=== PATIENT | female | born 1990 | race Hispanic/Latino ===

== ENCOUNTER 2017-06-06 15:30 | Emergency (ER) | payer OTHER ==
[2017-06-06 15:59] VITALS: BP 129/86; TEMP 99.6; O2SAT 95
--- NOTE | 2017-06-06 16:02 | ED.PDOC ---
History of Present Illness - General Chief Complaint: ENT Problem Stated Complaint: sore throat Time Seen by Provider: 06/06/17 15:59 Source: patient, RN notes reviewed, Vital Signs reviewed Exam Limitations: no limitations - History of Present Illness Timing/Duration: gradual, this afternoon Severity: mild EENT Location: throat Prearrival Treatment: no prearrival treatment Improving Factors: nothing Worsening Factors: nothing Associated Symptoms: denies symptoms Allergies/Adverse Reactions: Allergies NO KNOWN ALLERGY Allergy (Verified 02/14/15 20:54) Home Medications: Ambulatory Orders Acetaminophen W/ Codeine [Tylenol W/ CODEINE #3] 1 ea PO Q4-6H PRN #14 Amoxicillin & Pot Clavulanate [Augmentin Xr 1000-62.5 mg] 1 tab PO BID #20 tab 02/03/15 Ondansetron [Zofran Odt] 4 mg PO Q8HR PRN #15 tab 02/03/15 Ciprofloxacin [Cipro] 500 mg PO BID #20 tab 02/14/15 metroNIDAZOLE [Flagyl] 500 mg PO TID #30 tab 02/14/15 Amoxicillin [Amoxil] 1,000 mg PO BID 10 Days #40 cap 06/06/17 Review of Systems - Review of Systems Constitutional: States: chills, fever EENTM: States: throat pain. Denies: eye pain, tearing, ear pain, nose pain, throat swelling Respiratory: Denies: cough, orthopnea, short of breath Cardiology: Denies: chest pain, edema, palpitations Gastrointestinal/Abdominal: Denies: abdominal pain, constipation, diarrhea Skin: States: no symptoms reported Past Medical History (General) - Patient Medical History Hx Seizures: No Hx Stroke: No Hx Dementia: No Hx Asthma: No Hx of COPD: No Hx Cardiac Disorders: No Hx Congestive Heart Failure: No Hx Pacemaker: No Hx Hypertension: No Hx Thyroid Disease: No Hx Diabetes: No Hx Gastroesophageal Reflux: No Hx Renal Disease: No Hx Cancer: No Hx of HIV: No Hx Hepatitis C: No Hx MRSA: No - Vaccination History Hx Tetanus, Diphtheria Vaccination: No Hx Influenza Vaccination: Yes Hx Pneumococcal Vaccination: Yes - Social History Hx Tobacco Use: Yes Hx Chewing Tobacco Use: No Hx Alcohol Use: No Hx Substance Use: No Hx Substance Use Treatment: No Hx Depression: No Hx Physical Abuse: No Hx Emotional Abuse: No Hx Suspected Abuse: No - Female History Hx Last Menstrual Period: 11/22/14 Patient : No Family Medical History - Family History Mother Family History: No Known Physical Exam - Physical Exam General Appearance: Alert, Well Developed, Well Groomed, Well Hydrated, Well Nourished Eye Exam: bilateral normal Ear Exam: bilateral ear: auricle normal, canal normal, TM normal Nasal Exam: normal inspection Throat Exam: normal mouth inspection, tonsillar exudate, tonsillar swelling Neck: non-tender, full range of motion, supple, lymphadenopathy (R), lymphadenopathy (L) Cardiovascular/Respiratory: no M/R/G, normal peripheral pulses, tachycardia Skin Exam: normal color Progress - Progress Progress: 06/06/17 16:05 3 centor criteria will treat with abx Departure - Departure Clinical Impression: Streptococcal sore throat Time of Disposition: 16:00 Disposition: Discharge to Home or Self Care Condition: Fair Departure Forms: ED Discharge - Pt. Copy, Patient Portal Self Enrollment Instructions: DI for Ear Pain-Adult, Strep Throat Diet: resume usual diet Activity: increase activity as tolerated Referrals: Gumaro Egan MD [Primary Care Provider] - 1-2 Weeks Prescriptions: Amoxicillin [Amoxil] 1,000 mg PO BID 10 Days #40 cap Home Medications: Ambulatory Orders Acetaminophen W/ Codeine [Tylenol W/ CODEINE #3] 1 ea PO Q4-6H PRN #14 Amoxicillin & Pot Clavulanate [Augmentin Xr 1000-62.5 mg] 1 tab PO BID #20 tab 02/03/15 Ondansetron [Zofran Odt] 4 mg PO Q8HR PRN #15 tab 02/03/15 Ciprofloxacin [Cipro] 500 mg PO BID #20 tab 02/14/15 metroNIDAZOLE [Flagyl] 500 mg PO TID #30 tab 02/14/15 Amoxicillin [Amoxil] 1,000 mg PO BID 10 Days #40 cap 06/06/17
[2017-06-06] MEDS ORDERED: AMOXICILLIN 500 MG CAP PO ONE (16:22)
== END 2017-06-06 16:31 | disposition home or self-care (01) ==
LOC: ER 15:30
DX: J02.0 Streptococcal pharyngitis (principal); Z87.891 Personal history of nicotine dependence

== ENCOUNTER 2019-12-16 15:57 | Emergency (ER) | payer SELFPAY ==
[2019-12-16 16:16] VITALS: O2SAT 100
[2019-12-16] MEDS ORDERED: SODIUM CHLORIDE 0.9% 1000ML 1,000 ML IVS ONE (16:16)
[2019-12-16] MEDS ORDERED: ONDANSETRON INJ 4 MG/2 ML VIAL IV ONE (16:16)
--- NOTE | 2019-12-16 16:19 | ED.PDOC ---
History of Present Illness - General Chief Complaint: Respiratory Problem Stated Complaint: vomiting blood Time Seen by Provider: 12/16/19 16:07 Source: patient, RN notes reviewed, Vital Signs reviewed, family, RN/MD Exam Limitations: no limitations - History of Present Illness Comments: Patient is a 29-year-old female who presents the ED with 1 day history of nonproductive cough, shortness of breath, body aches, nausea and vomiting. States she has vomited 4 times today and the last time had streaks of blood in it which caused her to come to the ED for evaluation. She denies chest pain, abdominal pain, fever, diarrhea or any urinary symptoms. States her last menstrual period was 2 months ago, and she is unsure if she is . Has not taken anything for her symptoms today because she was at work and could not leave until now. Allergies/Adverse Reactions: Allergies NO KNOWN ALLERGY Allergy (Verified 02/14/15 20:54) Home Medications: Ambulatory Orders Benzonatate Perles [Tessalon Perles] 100 mg PO Q6H PRN #20 cap 12/16/19 Review of Systems - Review of Systems Constitutional: Denies: chills, fever, weakness EENTM: Denies: ear pain, nose congestion, throat pain, throat swelling Respiratory: States: cough, short of breath Cardiology: Denies: chest pain, palpitations, syncope Gastrointestinal/Abdominal: States: nausea, vomiting. Denies: abdominal pain, diarrhea Genitourinary: Denies: dysuria, frequency, hematuria Musculoskeletal: Denies: back pain, neck pain Neurological: Denies: headache, paresthesia Hematologic/Lymphatic: States: see HPI All other Systems: Reviewed and Negative Past Medical History (General) - Patient Medical History Hx Seizures: No Hx Stroke: No Hx Dementia: No Hx Asthma: No Hx of COPD: No Hx Cardiac Disorders: No Hx Congestive Heart Failure: No Hx Pacemaker: No Hx Hypertension: No Hx Thyroid Disease: No Hx Diabetes: No Hx Gastroesophageal Reflux: No Hx Renal Disease: No Hx Cancer: No Hx of HIV: No Hx Hepatitis C: No Hx MRSA: No Surgical History: appendectomy, colectomy - Vaccination History Hx Tetanus, Diphtheria Vaccination: No Hx Influenza Vaccination: Yes Hx Pneumococcal Vaccination: Yes - Social History Hx Tobacco Use: Yes Hx Chewing Tobacco Use: No Hx Alcohol Use: No Hx Substance Use: No Hx Substance Use Treatment: No Hx Depression: No Hx Physical Abuse: No Hx Emotional Abuse: No Hx Suspected Abuse: No - Female History Patient is a Female of Child Bearing Age (10 -59 yrs old): Yes Hx Last Menstrual Period: 11/22/14 Patient : No Family Medical History - Family History Mother Family History: No Known Physical Exam - Physical Exam General Appearance: Alert, Comfortable, No apparent distress ENT Exam: other - Oropharynx has no erythema, edema or exudates. Uvula is midl ine. No trismus. Neck: non-tender, supple Respiratory: chest non-tender, lungs clear, normal breath sounds, no respiratory distress Cardiovascular/Chest: regular rate, rhythm, no edema, no murmur Gastrointestinal/Abdominal: other - Morbidly obese, soft, nontender to palpation in all quadrants. Extremity: normal range of motion, non-tender, normal inspection Neurologic: no motor/sensory deficits, alert, normal mood/affect Skin Exam: normal color, warm/dry Progress - Progress Progress: 12/16/19 16:22 Differential diagnosis: Pneumonia, bronchitis, COVID-19, gastroenteritis, upper GI bleed, influenza, viral syndrome 12/16/19 17:45 Patient presents with 1 day history of body aches, cough and nausea and vomiting. Vital signs have been stable. She has no respiratory distress or hypoxia. Chest x-ray and labs are reassuring. I have discussed with patient possible COVID-19 symptoms. I have recommended she follow-up with her PCP or [facility] tomorrow for testing. I have recommended 14-day self quarantine as well. Strict return precautions given. - Results/Orders Results/Orders: CHEST XRAY No acute process 12/16/19 16:15 IV:Start .ONCE Laboratory Results - last 24 hr 12/16/19 12/16/19 12/16/19 16:35 16:35 16:35 WBC 9.0 RBC 4.44 Hgb 13.2 Hct 39.3 MCV 88.6 MCH 29.6 MCHC 33.4 RDW 14.6 H Plt Count 265 MPV 7.7 Absolute Neuts (auto) 6.80 Absolute Lymphs (auto) 1.70 Absolute Monos (auto) 0.30 Absolute Eos (auto) 0.00 Absolute Basos (auto) 0.10 Neutrophils % 75.9 Lymphocytes % 19.1 L Monocytes % 3.6 Eosinophils % 0.4 L Basophils % 1.0 PT 10.1 INR 1.02 PTT (SP) 28.2 Sodium 140 Potassium 3.6 Chloride 108 Carbon Dioxide 24 Anion Gap 11.6 L BUN 17 Creatinine 0.70 BUN/Creatinine Ratio 24.3 H Random Glucose 96 Serum Osmolality 280.8 Calcium 8.3 L Total Bilirubin 0.4 AST 16 ALT 15 Alkaline Phosphatase 114 Serum Total Protein 7.6 Albumin 3.4 Globulin 4.2 H Albumin/Globulin Ratio 0.8 L Lipase 23 Urine Color Urine Appearance Urine pH Ur Specific [place] Urine Protein Urine Glucose (UA) Urine Ketones Urine Blood Urine Nitrite Urine Bilirubin Urine Urobilinogen Ur Leukocyte Esterase Urine RBC Urine WBC Ur Epithelial Cells Urine Bacteria Urine HCG, Qual 12/16/19 12/16/19 16:35 16:42 WBC RBC Hgb Hct MCV MCH MCHC RDW Plt Count MPV Absolute Neuts (auto) Absolute Lymphs (auto) Absolute Monos (auto) Absolute Eos (auto) Absolute Basos (auto) Neutrophils % Lymphocytes % Monocytes % Eosinophils % Basophils % PT INR PTT (SP) Sodium Potassium Chloride Carbon Dioxide Anion Gap BUN Creatinine BUN/Creatinine Ratio Random Glucose Serum Osmolality Calcium Total Bilirubin AST ALT Alkaline Phosphatase Serum Total Protein Albumin Globulin Albumin/Globulin Ratio Lipase Urine Color Yellow Urine Appearance Clear Urine pH 5.0 Ur Specific [place] >= 1.030 Urine Protein >=300 H Urine Glucose (UA) Negative Urine Ketones Negative Urine Blood Negative Urine Nitrite Negative Urine Bilirubin Negative Urine Urobilinogen 0.2 Ur Leukocyte Esterase Negative Urine RBC 0 Urine WBC 0 Ur Epithelial Cells 1-3 Urine Bacteria 0 Urine HCG, Qual Negative Departure - Departure Clinical Impression: Viral syndrome Nausea & vomiting Qualifiers: Vomiting type: unspecified Vomiting Intractability: non-intractable Qualified Code(s): R11.2 - Nausea with vomiting, unspecified Time of Disposition: 17:47 Disposition: Discharge to Home or Self Care Condition: Good Departure Forms: ED Discharge - Pt. Copy, Patient Portal Self Enrollment Instructions: Viral Syndrome (DC) Diet: diabetic diet Activity: increase activity as tolerated Prescriptions: Benzonatate Perles [Tessalon Perles] 100 mg PO Q6H PRN #20 cap PRN Reason: Cough Home Medications: Ambulatory Orders Benzonatate Perles [Tessalon Perles] 100 mg PO Q6H PRN #20 cap 06/20/20 Additional Instructions: Follow up at PCP or [facility] for COVID testing
--- NOTE | 2019-12-16 16:45 | RAD ---
EXAM DESCRIPTION: Chest,1 View CLINICAL HISTORY: 29 years Female, cough COMPARISON: None. FINDINGS: Cardiomediastinal silhouette is normal. No focal consolidation, pneumothorax or pleural effusion. Osseous structures unremarkable. IMPRESSION: No acute findings. Electronically signed by: Nahid Rizzo MD 12/16/2019 4:43 PM CDT
[2019-12-16 19:31] VITALS: BP 144/91; TEMP 98.9
== END 2019-12-16 18:15 | disposition home or self-care (01) ==
LOC: ER 15:57
DX: B34.9 Viral infection, unspecified (principal); R11.2 Nausea with vomiting, unspecified; R05 Cough; F17.200 Nicotine dependence, unspecified, uncomplicated
CPT/HCPCS: 36415; 71045; 80053; 81001; 81025; 83690; 85025; 85610; 85730; J2405; J7030

== ENCOUNTER 2020-01-30 14:51 | Emergency (ER) | payer SELFPAY ==
[2020-01-30] MEDS ORDERED: ALUM & MAG HYDROX-SIMETHICONE 30 ML, LIDOCAINE VISCOUS 2% 15 ML PO ONE ×2 (16:17)
[2020-01-30 17:10] VITALS: O2SAT 99
[2020-01-30 18:07] VITALS: BP 122/78; TEMP 97.9
--- NOTE | 2020-01-30 18:16 | ED.PDOC ---
History of Present Illness - General Chief Complaint: Abdominal Pain Stated Complaint: upper abdominal pain Time Seen by Provider: 01/30/20 15:41 Information Source: patient Exam Limitations: no limitations - History of Present Illness Initial Comments: PT LEARNED YESTERDAY SHE IS . UPPER ABD PAIN TODAY. POS NAUS, NO V. NO NAUSEA IN ER. (1 MISCARRIAGE). Abdominal Pain Onset Location: epigastric Pain Radiation: no radiation Quality: moderate Improving Factors: nothing Worsening Factors: nothing Associated Symptoms: denies symptoms Review of Systems - Review of Systems Constitutional: Denies: chills, fever EENTM: States: no symptoms reported Respiratory: States: no symptoms reported Cardiology: States: no symptoms reported Gastrointestinal/Abdominal: States: abdominal pain. Denies: constipation, diarrhea, vomiting Genitourinary: Denies: dysuria, frequency, hematuria Musculoskeletal: Denies: back pain, neck pain Skin: States: no symptoms reported Neurological: States: no symptoms reported Endocrine: States: no symptoms reported Hematologic/Lymphatic: States: no symptoms reported All other Systems: Reviewed and Negative Past Medical History (General) - Patient Medical History Hx Seizures: Yes Hx Stroke: No Hx Dementia: No Hx Asthma: No Hx of COPD: No Hx Cardiac Disorders: No Hx Congestive Heart Failure: No Hx Pacemaker: No Hx Hypertension: No Hx Thyroid Disease: No Hx Diabetes: No Hx Gastroesophageal Reflux: No Hx Renal Disease: No Hx Cancer: No Hx of HIV: No Hx Hepatitis C: No Hx MRSA: No Surgical History: appendectomy, colectomy - Vaccination History Hx Tetanus, Diphtheria Vaccination: No Hx Influenza Vaccination: No Hx Pneumococcal Vaccination: No - Social History Hx Tobacco Use: No Hx Chewing Tobacco Use: No Hx Alcohol Use: No Hx Substance Use: No Hx Substance Use Treatment: No Hx Depression: No Hx Physical Abuse: No Hx Emotional Abuse: No Hx Suspected Abuse: No - Female History Hx Last Menstrual Period: 11/22/14 Patient : No Family Medical History - Family History Mother Family History: No Known Physical Exam - Physical Exam General Appearance: Alert, No apparent distress, Obese Eyes, Ears, Nose, Throat Exam: PERRL/EOMI, normal ENT inspection Neck: non-tender, full range of motion Respiratory: lungs clear, normal breath sounds Cardiovascular/Chest: regular rate, rhythm, no murmur Peripheral Pulses: No deficit Gastrointestinal/Abdominal: normal bowel sounds, soft, no organomegaly, no pulsatile mass, other - MILDLY TTP EPIGASTRIC. NO GUARDING OR REBOUND. Rectal Exam: deferred Back Exam: no CVA tenderness, no vertebral tenderness Extremity: normal range of motion, no pedal edema, no calf tenderness Neurologic: no motor/sensory deficits, alert, normal mood/affect Skin Exam: normal color, warm/dry Lymphatic: no adenopathy Progress - Progress Progress: 01/30/20 18:16 PT PRESENTLY VOIDED TO PRODUCE URINE SAMPLE. 01/30/20 18:49 W/U NEG FOR OTHER CAUSES OF EPIGASTRIC PAIN (LIPASE NEG FOR PANCREATITIS. CBC NEG. CMP NEG FOR BILIARY PATHOLOGY. UA NEG FOR UTI. GI COCKTAIL DID NOT HELP, THUS NOT LIKELY GERD.) HCG C/W APPROX 2 MOS . BENIGN -RELATED PAIN. I EDUCATED SHE WILL HAVE ADDITIONAL ABD PAINS OVER SEVERAL MONTHS UTERUS GROWS. F/U W/ OB. PT STATES SHE IS GETTING MEDICAID AND THEN OB IN [facility]. - EKG/XRAY/CT CT Ordered: No CT Interpretation Call Back: No Departure - Departure Clinical Impression: with generalized abdominal pain, antepartum Abdominal pain Qualifiers: Abdominal location: epigastric Qualified Code(s): R10.13 - Epigastric pain Disposition: Discharge to Home or Self Care Condition: Good Departure Forms: ED Discharge - Pt. Copy, Patient Portal Self Enrollment Instructions: DI for Abdominal Pain-Adult Diet: resume usual diet Activity: increase activity as tolerated Referrals: Rene Dillon MD [Primary Care Provider] - 1-2 Weeks Additional Instructions: Please establish care with your OB doctor, as planned. Tylenol (acetaminophen) is safe for aches and pains during .
== END 2020-01-30 18:49 | disposition home or self-care (01) ==
LOC: ER 14:51
DX: O26.891 Other specified pregnancy related conditions, first trimester (principal); R10.13 Epigastric pain; Z3A.00 Weeks of gestation of pregnancy not specified; Z90.49 Acquired absence of other specified parts of digestive tract

== ENCOUNTER 2020-05-28 14:11 | Emergency (ER) | payer MEDICAID ==
[2020-05-28 14:29] VITALS: TEMP 98.4
[2020-05-28] MEDS ORDERED: KETOROLAC TROMETHAMINE INJ 60 MG/2 ML VIAL IM ONE (14:52)
--- NOTE | 2020-05-28 14:58 | ED.PDOC ---
History of Present Illness - General Chief Complaint: General Stated Complaint: left knee pain Time Seen by Provider: 05/28/20 14:39 Source: patient Exam Limitations: no limitations - History of Present Illness Initial Comments: ACUTE L KNEE PAIN. AWOKE 3 D AGO, L KNEE HURT. CAN'T STAND W/O PAIN. NO INJURY. IT FEELS LIKE IT WANTS TO "GIVE OUT" WHEN WALKS. FEELS TIGHT AND SWOLLEN AT REST, WORSE WITH EXTENSION. IS "ON HER FEET ALL DAY" AT WORK Timing/Duration: constant Severity: moderate Improving Factors: nothing Worsening Factors: movement Associated Symptoms: denies symptoms Allergies/Adverse Reactions: Allergies NO KNOWN ALLERGY Allergy (Verified 01/30/20 15:18) Review of Systems - Review of Systems Constitutional: States: no symptoms reported EENTM: States: no symptoms reported Respiratory: Denies: cough, short of breath Cardiology: Denies: chest pain, palpitations Gastrointestinal/Abdominal: States: no symptoms reported Genitourinary: States: no symptoms reported Musculoskeletal: States: joint pain. Denies: back pain, muscle pain, neck pain Skin: States: no symptoms reported Neurological: States: no symptoms reported Endocrine: States: no symptoms reported Hematologic/Lymphatic: States: no symptoms reported All other Systems: Reviewed and Negative Past Medical History (General) - Patient Medical History Hx Seizures: Yes Hx Stroke: No Hx Dementia: No Hx Asthma: No Hx of COPD: No Hx Cardiac Disorders: No Hx Congestive Heart Failure: No Hx Pacemaker: No Hx Hypertension: No Hx Thyroid Disease: No Hx Diabetes: No Hx Gastroesophageal Reflux: No Hx Renal Disease: No Hx Cancer: No Hx of HIV: No Hx Hepatitis C: No Hx MRSA: No Surgical History: appendectomy - Vaccination History Hx Tetanus, Diphtheria Vaccination: No Hx Influenza Vaccination: No Hx Pneumococcal Vaccination: No - Social History Hx Tobacco Use: No Hx Chewing Tobacco Use: No Hx Alcohol Use: No Hx Substance Use: No Hx Substance Use Treatment: No Hx Depression: No Hx Physical Abuse: No Hx Emotional Abuse: No Hx Suspected Abuse: No - Female History Patient is a Female of Child Bearing Age (10 -59 yrs old): Yes Hx Last Menstrual Period: 11/22/14 Patient : No Family Medical History - Family History Mother Family History: No Known Physical Exam - Physical Exam General Appearance: Alert, Obese Eye Exam: bilateral normal Ears, Nose, Throat: hearing grossly normal, normal ENT inspection Neck: full range of motion, normal inspection Respiratory: lungs clear, normal breath sounds Cardiovascular/Chest: no murmur, tachycardia - REGULAR RHYTHM. Peripheral Pulses: radial,right: 2+, radial,left: 2+, dorsalis pedis,right: 0 - NON-PALPABLE FROM SEVERE OBESITY. , dorsalis pedis,left: 0 - NON-PALPABLE FROM SEVERE OBESITY. , posterior tibialis,right: 0 - NON-PALPABLE FROM SEVERE OBESITY. , posterior tibialis,left: 0 - NON-PALPABLE FROM SEVERE OBESITY. Gastrointestinal/Abdominal: non tender Rectal Exam: deferred Back Exam: normal inspection Extremity: normal inspection, no calf tenderness, other - L KNEE TTP AL 4 ASPECTS, WORSE WITH MOVEMENT. NEG ILDA'S/DRAWER. LIGAMENTS IN TACT. PATELLA IN POSITITION. INCREASED PAIN WITH EXTENSION. SEVERELY OBESE THUS UNABLE TO PALPATE FOR A NOGUERA'S CYST. NEG DIANA'S. Neurologic: alert, normal mood/affect Skin Exam: normal color, warm/dry Lymphatic: no adenopathy Progress - Progress Progress: 05/28/20 16:37 U/S REPORT PENDING. 05/28/20 17:20 U/S NEG FOR NOGUERA'S CYST OR OTHER PATHOLOGY. KNEE XRAY SHOWS MILD ARTHRITIS (PATELOFEMORAL ARTHROSIS). F/U W/ PCP. - Results/Orders Results/Orders: WORSENED PAIN WITH KNEE IN EXTENSION, DISCOMFORT WITH STANDING, SEVERE OBESITY, AND IS "ON FEET ALL DAY" AT HER WORK, THUS HIGH RISK FOR NOGUERA'S CYST. WILL OBTAIN U/S. Departure - Departure Clinical Impression: Left knee pain, Arthritis of left knee Disposition: Discharge to Home or Self Care Condition: Good Departure Forms: ED Discharge - Pt. Copy, Patient Portal Self Enrollment Instructions: Patellofemoral Pain (DC) Diet: resume usual diet Activity: increase activity as tolerated Referrals: Rene Dillon MD [Primary Care Provider] - 1-2 Weeks Additional Instructions: Rest, ice the knee, take tylenol as needed. If it is not improving over several days, please see your regular doctor.
--- NOTE | 2020-05-28 15:13 | RAD ---
EXAM DESCRIPTION: Knee,Left Complete CLINICAL HISTORY: 29 years Female, 3 D L KNEE PAIN. DENIES TRAUMA. COMPARISON: None. TECHNIQUE: 3 view radiograph of the left knee. IMPRESSION: No acute displaced fracture. No dislocation. No greater than mild joint space narrowing of the weightbearing knee compartment. The tibial plateau is intact. Mild patellofemoral arthrosis. No significant knee joint effusion. No radiographically apparent soft tissue abnormality. Electronically signed by: Pablo Neri MD 05/28/2020 3:11 PM [facility]
--- NOTE | 2020-05-28 16:42 | US ---
EXAM DESCRIPTION: Soft Tissue,Extremity: ULTRASOUND. CLINICAL HISTORY: 29 years Female L KNEE PAIN, OBESE, POSSIBLE DURAN'S CYST. COMPARISON: None Available. TECHNIQUE: Transcutaneous scanning: Dueñas-scale and Doppler modes. Impression: Scanning of the left popliteal fossa. Normal soft tissues and vascular structures. No dominant solid mass, no distinct cysts, no fluid collection, no large calcifications. Overlying skin changes are unremarkable. Specifically, no Duran's cyst. Electronically signed by: Vaibhav Gupta MD 05/28/2020 4:41 PM [facility]
[2020-05-28 17:28] VITALS: BP 150/100; O2SAT 97
== END 2020-05-28 17:28 | disposition home or self-care (01) ==
LOC: ER 14:11
DX: M13.862 Other specified arthritis, left knee (principal); E66.01 Morbid (severe) obesity due to excess calories; Z68.44 Body mass index [BMI] 60.0-69.9, adult
CPT/HCPCS: 73562; 76882; J1885